=== PATIENT | male | born 1975 | race Caucasian/White ===

== ENCOUNTER 2021-04-05 11:18 | Emergency (ER) | payer OTHER ==
[~2021-04-05] VITALS: Ht 175.3 cm; Wt 140.6 kg
[2021-04-05 11:40] LABS: BASOPHILS 0.6 % (0.0-2.0); EOSINOPHILS 4.6 % (0.0-3.0); HEMATOCRIT 21.8 % (42.0-52.0); HEMOGLOBIN 7.5 gm/dL (14.0-18.0); LYMPHOCYTES 9.4 % (24.0-44.0); MCH 31.7 pg (26.0-34.0); MCHC 34.3 g/dL (28.0-37.0); MCV 92.2 fL (80.0-100.0); MONOCYTES 8.2 % (1.0-8.0); PLATELET COUNT 286 thou/uL (150-400); POLYS 77.2 % (36.0-66.0); RBC 2.37 mil/uL (4.50-6.00); RDW 16.2 % (10.5-14.5)
[2021-04-05 11:50] LABS: CALCIUM 8.8 mg/dL (8.5-10.1); CREATININE 12.8 mg/dL (0.7-1.3); POTASSIUM 4.2 mmol/L (3.5-5.1)
[2021-04-05 17:32] VITALS: BP 176/90
--- NOTE | 2021-04-06 07:27 | EKG ---
[place] [address] [facility] [address] [place] [address] ELECTROCARDIOGRAM REPORT Name: MELISSA SOARES [facility] [id number] Admission: 04/05/21 Attend Phys: Discharge: 04/05/21 Date of : 73 Report #: [id number] [facility] ED Test Date: 2021-04-05 Test Time: 11:17:30 Pat Name: MELISSA SOARES Department: Room: Gender: M [employer]: junie : 1975 Requested By: Armando Burnham Order Number: [id number] MD: Ray Ennis Measurements Intervals [place] Rate: 103 P: 36 [place]: 164 QRS: 12 QRSD: 98 T: 52 QT: 347 QTc: 454 Interpretive Statements Sinus tachycardia Left ventricular hypertrophy Baseline wander in lead(s) II,aVR Compared to ECG 09/08/2002 02:01:21 Left ventricular hypertrophy now present Sinus rhythm no longer present Electronically Signed On 04-06-2021 7:27:23 CDT by Ray Ennis [email or web address] <ELECTRONICALLY SIGNED> By: Ray Ennis MD, [facility] 04/06/21 0727 D: [id number] Ray Ennis MD, FACC /EPI
== END 2021-04-05 17:46 | disposition home or self-care (01) ==
LOC: ER 11:18
PROVIDERS: Nurse Practitioner
DX: R07.89 Other chest pain (principal); Z20.822 Contact with and (suspected) exposure to COVID-19; R06.00 Dyspnea, unspecified; N18.6 End stage renal disease; Z99.2 Dependence on renal dialysis; Z90.49 Acquired absence of other specified parts of digestive tract; Z98.890 Other specified postprocedural states; Z88.5 Allergy status to narcotic agent; Z88.8 Allergy status to other drugs, medicaments and biological substances; Z91.018 Allergy to other foods